=== PATIENT | female | born 1990 | race Caucasian/White ===

== ENCOUNTER 2023-03-31 18:59 | Emergency (ER) | payer MEDICAID, SELFPAY ==
[2023-03-31 19:35] VITALS: BP 176/129; PULSE 115; RESP 20; TEMP 36.2; O2SAT 94; BMI 40.3
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
[2023-03-31 20:19] VITALS: BP 181/136; PULSE 115; RESP 16; TEMP 36.1; O2SAT 98
--- NOTE | 2023-03-31 20:23 | PC.NURSE ---
Report elevated blood pressure to RANDAL Carreon, pt has history of HX but did not take medication today, pain level 9/10. No knew order upon discharge. RANDAL aware.
== END 2023-03-31 20:25 | disposition home or self-care (01) ==
PROVIDERS: Emergency Provider Internal Medicine
DX: S43.141A Inferior dislocation of right acromioclavicular joint, initial encounter (principal); M25.511 Pain in right shoulder; V43.52XA Car driver injured in collision with other type car in traffic accident, initial encounter; Y93.9 Activity, unspecified; Y92.410 Unspecified street and highway as the place of occurrence of the external cause; Y99.9 Unspecified external cause status; Z79.899 Other long term (current) drug therapy
CPT/HCPCS: 29105; 73030; 99283; 99284

== ENCOUNTER 2023-04-11 15:24 | Emergency (ER) | payer MEDICAID, SELFPAY ==
[2023-04-11 16:21] VITALS: BP 150/100; PULSE 96; RESP 14; TEMP 36.6; O2SAT 100; BMI 38.1
--- NOTE | 2023-04-11 16:54 | ED_ITS ---
HPI - General Adult General Chief complaint: ETOH/Substance Use Stated complaint: ETOH SEEKING DETOX Time Seen by Provider: 04/11/23 16:44 Source: patient, RN notes reviewed and old records reviewed Mode of arrival: EMS Limitations: no limitations History of Present Illness HPI narrative: 32-year-old female presents for evaluation of alcohol intoxication Patient admits to drinking ?8 nips of Smirnoff 100. She states ?I had a little bit too much to drink and needed to sober up. ? She states that she was in a verbal altercation earlier because ?the father of my children got arrested down in [place] earlier today. ? The patient has no complaints or concerns I would like to be discharged She states that she does not want any detox resources He states that she has been to detox in the past and is not helpful She reports that her father is on his way to pick her up Related Data Allergies Allergy/AdvReac Type Severity Reaction Status Date / Time naproxen [NAPROXEN] Allergy Intermediate HIVES/SWELLING, Verified 03/31/23 19:38 dry patches of skin Naproxen Allergy Unknown hives Uncoded 03/31/23 19:38 Review of Systems Constitutional: Constitutional: Denies chills and Denies fever(s) Eyes: Eyes: Denies blurry vision Cardiovascular: Cardiovascular: Denies chest pain and Denies dyspnea Respiratory: Respiratory: Denies cough and Denies dyspnea Gastrointestinal: Gastrointestinal: Denies abdominal pain, Denies nausea and Denies vomiting Musculoskeletal: Musculoskeletal: Denies back pain Integumentary/Breasts: Skin/Breast: Denies rash PMFSH Social History Social History Alcohol intake: current Smoked in Last 30 Days: No Use of substances other than those prescribed or required for medical reasons: Yes Substance Use Type: Marijuana Advance Directives: No Advance Directives Information Provided: No Patient : No Physical Exam ED Vital Signs: BMI result Body Mass Index 38.1 Const General: healthy appearing, comfortable, no acute distress, alert and awake Nutritional Appearance: well nourished Orientation/consciousness: patient oriented x3 HENMT Head: Yes normocephalic and Yes atraumatic Eyes Eyelids: Yes eyelids normal Conjunctivae: conjunctivae normal Sclerae: sclerae normal Corneas: corneas normal Pupils: Equal, round and reactive pupils present EOM: EOMs intact bilaterally Neck Neck: Yes full ROM Resp Effort & Inspection: normal respiratory effort, able to speak in complete sentences and not labored GI Inspection: No distended Palpation (GI): Soft to palpation, not firm, nontender, no guarding and not rigid Skin General skin exam: no rashes or lesions noted and elasticity normal Neuro General: patient oriented x3 Cranial nerves: Yes Equal, round and reactive pupils present and Yes Bilaterally intact EOM present Cognition (Neuro): normal cognition Extrem Other: Moving all extremities well without any obvious deformities Medical Decision Making Medical Decision Making MDM Narrative: 32-year-old female presents for evaluation of alcohol abuse. She is common cooperative at time my evaluation, the patient can ambulate with a steady, even gait. She is speaking with clear sensorium. She declines detox resources. She is to for discharge this time Differential Diagnosis Differential Diagnoses: The differential diagnosis associated with the presentation includes Alcohol abuse Agitation Mood disorder Polysubstance abuse Discharge Plan Discharge Clinical Impression: Alcoholic intoxication Patient Disposition: Home, Self-Care Instructions: Abuse of Alcohol (ED) Additional Instructions: Avoid excessive consumption of alcohol Follow-up with your primary doctor
[2023-04-11 16:58] LABS: Appearance Urine Clear; Color Urine Yellow; Glucose Urine UA Negative (Negative); Leukocyte Esterase Urine Negative (Negative); Nitrite Urine Negative (Negative); Specific Gravity - Urine <= 1.005 (1.005-1.025); Urine Blood Negative (Negative); Urine Ketones Negative (Negative); Urine Protein Negative (Neg-Trace)
[2023-04-11 17:01] LABS: Amphetamine Screen Urine Not Detected (Not Detect); Barbiturates, Urine Not Detected (Not Detect); Benzodiazepines Screen Urine Not Detected (Not Detect); Cannabinoid Screen Urine Not Detected (Not Detect); Cocaine Screen Urine Not Detected (Not Detect); Fentanyl, urine Not Detected (Not Detect); Opiate Screen Urine Not Detected (Not Detect); Phencyclidine Screen Urine Not Detected (Not Detect)
--- NOTE | 2023-04-11 17:06 | MHC.RECOVSUP ---
? Reason for consult [facility] Identified substance use concern: Alcohol - Seeking ATS (detox) - Support ? Intervention: o Harm reduction discussion ? Plan: <del>o</del> <del>Referral</del> <del>to</del> <del>[facility]</del> <del>o</del> <del>Bed</del> <del>search</del> <del>in</del> <del>progress</del> <del>to</del> <del>o</del> <del>Follow</del> <del>up</del> <del>tomorrow</del> <del>o</del> <del>Patient</del> <del>awaiting</del> <del>crisis</del> <del>evaluation</del> <del>o</del> <del>Patient</del> <del>to</del> <del>follow</del> <del>up</del> <del>with</del> <del>[facility]</del> <del>after</del> <del>discharge</del> ? Additional information: Patient denied any service.. stated I'm Good.
--- NOTE | 2023-04-11 17:09 | PC.NURSE ---
pt ambulating with a steady gait.pt to call UBER from waiting room. Luis TEE aware
== END 2023-04-11 17:09 | disposition home or self-care (01) ==
PROVIDERS: Emergency Provider Internal Medicine
DX: F10.129 Alcohol abuse with intoxication, unspecified (principal); Y90.9 Presence of alcohol in blood, level not specified; Z79.899 Other long term (current) drug therapy
CPT/HCPCS: 80307; 81003; 99284

== ENCOUNTER 2023-06-17 09:23 | Outpatient (REF) | payer MEDICAID, SELFPAY | END 2023-06-17 09:24 | disposition home or self-care (01) | LOC: HO.HOSX 09:23 | PROVIDERS: Visit Provider Physician Assistant | DX: S43.101A Unspecified dislocation of right acromioclavicular joint, initial encounter (principal) | CPT/HCPCS: 73030; 99212 ==

== ENCOUNTER 2023-06-17 11:08 | Outpatient (AMB) | payer MEDICAID, SELFPAY ==
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
== END 2023-06-17 12:00 | disposition home or self-care (01) ==
PROVIDERS: Visit Provider Physician Assistant
DX: S43.101A Unspecified dislocation of right acromioclavicular joint, initial encounter (principal); Z04.3 Encounter for examination and observation following other accident
CPT/HCPCS: 99203